=== PATIENT | female | born 1955 | race Caucasian/White ===

== ENCOUNTER 2021-06-04 09:31 | Emergency (ER) | payer MEDICARE ==
[2021-06-04] MEDS ORDERED: Boostrix 0.5 ML (Tdap) VIAL ONE (10:04)
[2021-06-04] MEDS ORDERED: Bacitracin 1 PK ONE (10:14)
[2021-06-04] MEDS ORDERED: Rabies Vaccine Human 2.5 UNITS VIAL ONE (10:26)
== END 2021-06-04 12:18 | disposition home or self-care (01) ==
LOC: CSHERS 09:31
DX: S61.511A Laceration without foreign body of right wrist, initial encounter (principal); S60.511A Abrasion of right hand, initial encounter; I10 Essential (primary) hypertension; G62.9 Polyneuropathy, unspecified; W64.XXXA Exposure to other animate mechanical forces, initial encounter; Z23 Encounter for immunization
CPT/HCPCS: 90376; 90471; 90675; 90715; 96372

== ENCOUNTER → 2021-06-07 | Day surgery (SDC) | payer MEDICARE ==
[~2021-06-07] MED LIST: Rabies Vaccine Human 2.5 UNITS VIAL ONE
== END ==
LOC: CSHER/OP 11:39
PROVIDERS: ATTEND Emergency Medicine
DX: Z29.14 Encounter for prophylactic rabies immune globulin (principal)
CPT/HCPCS: 90675

== ENCOUNTER → 2021-06-14 | Day surgery (SDC) | payer MEDICARE | LOC: CSHER/OP 06:29 → EDSTATUS 07:29 | PROVIDERS: ATTEND Emergency Medicine | DX: Z29.14 Encounter for prophylactic rabies immune globulin (principal) | CPT/HCPCS: 90471; 90675 ==

== ENCOUNTER 2021-12-02 14:41 | Emergency (ER) | payer OTHER, MEDICARE ==
[2021-12-02] MEDS ORDERED: Amoxicillin/Potassium Clav 875 MG TAB ONE (15:13)
== END 2021-12-02 15:30 | disposition home or self-care (01) ==
LOC: CSHERS 14:41
DX: S81.852A Open bite, left lower leg, initial encounter (principal); I10 Essential (primary) hypertension; E78.5 Hyperlipidemia, unspecified; W54.0XXA Bitten by dog, initial encounter; Y93.01 Activity, walking, marching and hiking
CPT/HCPCS: 99283

== ENCOUNTER 2021-12-25 07:31 | Outpatient (CLI) | payer MEDICARE ==
[2021-12-25 09:09] LABS: Anion Gap 16 mmol/L (10-20); BUN (Urea Nitrogen) 6 mg/dL (9.8-20.1); Calc. Creatinine Clearance 0 mL/min (70-130); Calcium 9.6 mg/dL (7.8-10.44); Carbon Dioxide 25 mmol/L (23-31); Chloride 100 mmol/L (98-107); Glucose 89 mg/dL (80-115); Potassium 4.1 mmol/L (3.5-5.1); Sodium 137 mmol/L (136-145)
[2021-12-25 19:59] LABS: SARS-CoV-2 PCR by NAA Not Detected (NotDetected)
== END 2021-12-25 07:32 | disposition home or self-care (01) ==
LOC: CSHLAB 07:31
PROVIDERS: ATTEND Surgery
DX: Z01.818 Encounter for other preprocedural examination (principal); Z20.822 Contact with and (suspected) exposure to COVID-19; K64.8 Other hemorrhoids
CPT/HCPCS: 80048; 93005; 93010; U0003; U0005

== ENCOUNTER 2021-12-28 05:53 | Day surgery (SDC) | payer MEDICARE ==
[2021-12-26 15:03] VITALS: BMI 19.5
[2021-12-28] MEDS ORDERED: Lidocaine 1% MPF 2 ML VIAL ONE (06:53)
[2021-12-28] MEDS ORDERED: EPINEPHrine 1 MG/ML AMP ONE (07:00)
[2021-12-28] MEDS ORDERED: Bupivacaine PF 0.5% 30 ML VIAL ONE (07:01)
[2021-12-28] MEDS ORDERED: Lidocaine 2% Jelly 5 ML TUBE ONE ×2 (07:04→07:05)
[2021-12-28] MEDS ORDERED: ceFOXitin 1 GM VIAL ONE (07:27)
[2021-12-28] MEDS ORDERED: Fentanyl 100 MCG/2 ML VIAL ONE (07:27)
[2021-12-28] MEDS ORDERED: PROPOFOL 20 ML ONE (07:27)
[2021-12-28] MEDS ORDERED: Lidocaine 1% PF 5 ML VIAL ONE (07:27)
[2021-12-28] MEDS ORDERED: Dexamethasone 4 mg/ml Vial ONE (07:33)
[2021-12-28] MEDS ORDERED: Ondansetron PF 4 MG/2 ML Vial ONE (07:33)
[2021-12-28] MEDS ORDERED: HYDROcodone/Acetaminophen 5/325 mg Tablet PO PRN (08:29)
[2021-12-28] MEDS ORDERED: Acetaminophen 325 MG TAB PO PRN (08:29)
== END 2021-12-28 09:40 | disposition home or self-care (01) ==
LOC: CSHSDC 05:53
PROVIDERS: ATTEND Surgery
DX: K64.8 Other hemorrhoids (principal); I10 Essential (primary) hypertension; Z87.891 Personal history of nicotine dependence; Z79.899 Other long term (current) drug therapy; Z88.0 Allergy status to penicillin
CPT/HCPCS: 88304; J0171; J0694; J1100; J2405; J2704; J3010; S0020

== ENCOUNTER 2022-05-22 12:19 | Outpatient (CLI) | payer MEDICARE | END 2022-05-22 12:20 | disposition home or self-care (01) | LOC: CSHMAMMO 12:19 | PROVIDERS: ATTEND Family Medicine | DX: Z12.31 Encounter for screening mammogram for malignant neoplasm of breast (principal) | CPT/HCPCS: 77063; 77067 ==

== ENCOUNTER 2023-06-03 12:31 | Outpatient (CLI) | payer OTHER | END 2023-06-03 12:32 | disposition home or self-care (01) | LOC: CSHMAMMO 12:31 | PROVIDERS: ATTEND Family Medicine | DX: Z12.31 Encounter for screening mammogram for malignant neoplasm of breast (principal) | CPT/HCPCS: 77063; 77067 ==

== ENCOUNTER 2023-12-17 12:37 | Outpatient (CLI) | payer OTHER | END 2023-12-17 12:38 | disposition home or self-care (01) | LOC: CSHCT 12:37 | PROVIDERS: ATTEND Family Medicine | DX: R93.1 Abnormal findings on diagnostic imaging of heart and coronary circulation (principal); I77.810 Thoracic aortic ectasia | CPT/HCPCS: 71275; 82565 ==

== ENCOUNTER 2024-06-17 12:45 | Outpatient (CLI) | payer OTHER | END 2024-06-17 12:46 | disposition home or self-care (01) | LOC: CSHMAMMO 12:45 | PROVIDERS: ATTEND Family Medicine | DX: Z12.31 Encounter for screening mammogram for malignant neoplasm of breast (principal) | CPT/HCPCS: 77063; 77067 ==